=== PATIENT | female | born 1940 | race Caucasian/White ===

== ENCOUNTER 2016-03-29 09:27 | Outpatient (CLI) | payer MEDICARE, BC ==
[~2016-03-29] VITALS: Ht 162.6 cm; Wt 75.0 kg
[~2016-03-29 09:27] MED LIST: AMBIEN 10MG10 MG PO; ASPIRIN E.C. 8181 MG PO; AZULFIDINE500 MG/TAB PO; CITRACAL + D 311 TAB PO; COLACE 100100 MG/CAP PO; EPA FISH OIL1000 MG PO; FOLIC ACID0.8 MG PO; LASIX 20MG TABL20 MG PO; LEXAPRO 5MG5 MG PO; LIPITOR 40MG TA40 MG PO; METHOTREXA2.5 MG/TAB PO; MIRALAX PA17 GM/Dose PO; MULTIPLE VITAMI1 TAB PO; NORCO 325 MG-51 TAB PO; ORENCIA IV; ORENCIA250 MG IV; OSCAL 500MG/VI500 MG PO; OSTEO-BI-FLEX 21 TAB PO; PRILOSEC 20MG20 MG PO; PRILOTC PO; PROBIOTIC FORMU1 CAP PO; RELAFEN750 MG PO; RESTASIS0.05% OP; SENOKOT S 50 MG1 TAB PO; TYLENOL ARTHRI650 M1 PO; VITAMIN B122500 MCG PO; VITAMIN D1000 IU PO; ZOCOR 10MG10 MG PO; ZYRTEC 10MG10 MG PO
[2016-03-29 10:04] VITALS: BP 141/63; PULSE 62; TEMP 98.8
== END 2016-03-29 11:15 | disposition home or self-care (01) ==
LOC: EUO 09:27
DX: M06.89 Other specified rheumatoid arthritis, multiple sites (principal)
CPT/HCPCS: J0129

== ENCOUNTER 2016-05-01 13:08 | Outpatient (CLI) | payer MEDICARE, BC ==
[~2016-05-01] VITALS: Ht 162.6 cm; Wt 75.0 kg
[2016-05-01 14:20] VITALS: BP 1221/66; PULSE 75; TEMP 98.5
== END 2016-05-01 15:21 | disposition home or self-care (01) ==
LOC: EUO 13:08
DX: M06.89 Other specified rheumatoid arthritis, multiple sites (principal)
CPT/HCPCS: J0129

== ENCOUNTER 2016-05-29 13:27 | Outpatient (CLI) | payer MEDICARE, BC ==
[~2016-05-29] VITALS: Ht 162.6 cm; Wt 74.5 kg
[2016-05-29 13:47] VITALS: BP 134/45; PULSE 69; TEMP 97.7
== END 2016-05-29 16:49 | disposition home or self-care (01) ==
LOC: EUO 13:27
DX: M06.9 Rheumatoid arthritis, unspecified (principal)
CPT/HCPCS: J0129

== ENCOUNTER 2016-06-26 13:36 | Outpatient (CLI) | payer MEDICARE, BC ==
[~2016-06-26] VITALS: Ht 162.6 cm; Wt 75.0 kg
[2016-06-26 14:47] VITALS: BP 144/58; PULSE 71; TEMP 98.6
== END 2016-06-26 15:51 | disposition home or self-care (01) ==
LOC: EUO 13:36
DX: M06.9 Rheumatoid arthritis, unspecified (principal)
CPT/HCPCS: J0129

== ENCOUNTER 2016-07-24 09:44 | Outpatient (CLI) | payer MEDICARE, BC ==
[~2016-07-24] VITALS: Ht 162.6 cm; Wt 73.0 kg
[2016-07-24 10:20] VITALS: BP 141/67; PULSE 60; TEMP 98.1
== END 2016-07-24 11:34 | disposition home or self-care (01) ==
LOC: EUO 09:44
DX: M06.89 Other specified rheumatoid arthritis, multiple sites (principal)
CPT/HCPCS: J0129

== ENCOUNTER 2016-08-22 10:51 | Outpatient (CLI) | payer MEDICARE, BC ==
[~2016-08-22] VITALS: Ht 162.6 cm; Wt 73.1 kg
[2016-08-22 11:33] VITALS: BP 137/59; PULSE 65; TEMP 98.3
== END 2016-08-22 12:49 | disposition home or self-care (01) ==
LOC: EUO 10:51
DX: M06.89 Other specified rheumatoid arthritis, multiple sites (principal)
CPT/HCPCS: J0129

== ENCOUNTER 2016-09-19 09:34 | Outpatient (CLI) | payer MEDICARE, BC ==
[2016-09-19 11:00] VITALS: BP 138/68; PULSE 50; TEMP 97.9
== END 2016-09-19 13:00 ==
LOC: EUO 09:34
DX: M06.89 Other specified rheumatoid arthritis, multiple sites (principal); Z79.899 Other long term (current) drug therapy
CPT/HCPCS: J0129

== ENCOUNTER 2016-10-17 09:30 | Outpatient (CLI) | payer MEDICARE, BC ==
[~2016-10-17] VITALS: Ht 162.6 cm; Wt 74.6 kg
[2016-10-17 11:04] VITALS: BP 125/54; PULSE 65; TEMP 98.5
== END 2016-10-17 12:28 | disposition home or self-care (01) ==
LOC: EUO 09:30
DX: M06.9 Rheumatoid arthritis, unspecified (principal); Z79.899 Other long term (current) drug therapy
CPT/HCPCS: J0129

== ENCOUNTER 2016-12-31 12:25 | Outpatient (CLI) | payer MEDICARE, BC ==
[~2016-12-31] VITALS: Ht 162.6 cm; Wt 73.2 kg
[2016-12-31 13:30] VITALS: BP 151/68; PULSE 63; TEMP 98
== END 2016-12-31 15:05 | disposition home or self-care (01) ==
LOC: EUO 12:25
DX: M06.9 Rheumatoid arthritis, unspecified (principal); Z79.899 Other long term (current) drug therapy
CPT/HCPCS: J0129

== ENCOUNTER 2017-02-08 12:31 | Outpatient (CLI) | payer MEDICARE, BC ==
[~2017-02-08] VITALS: Ht 162.6 cm; Wt 74.2 kg
[2017-02-08 13:33] VITALS: BP 128/50; PULSE 73; TEMP 98.2
== END 2017-02-08 15:00 | disposition home or self-care (01) ==
LOC: EUO 12:47
DX: M06.89 Other specified rheumatoid arthritis, multiple sites (principal)
CPT/HCPCS: J0129

== ENCOUNTER 2017-03-07 12:22 | Outpatient (CLI) | payer MEDICARE, BC ==
[~2017-03-07] VITALS: Ht 162.6 cm; Wt 85.0 kg
[2017-03-07 13:00] VITALS: BP 135/59; PULSE 76; TEMP 97.6
== END 2017-03-07 14:50 | disposition home or self-care (01) ==
LOC: EUO 12:22
DX: M06.89 Other specified rheumatoid arthritis, multiple sites (principal); Z79.899 Other long term (current) drug therapy
CPT/HCPCS: J0129

== ENCOUNTER 2017-04-04 13:07 | Outpatient (CLI) | payer MEDICARE, BC ==
[~2017-04-04] VITALS: Ht 162.6 cm; Wt 73.6 kg
[2017-04-04 13:51] VITALS: BP 124/46; PULSE 80; TEMP 98
== END 2017-04-04 16:00 | disposition home or self-care (01) ==
LOC: EUO 13:07
DX: M06.89 Other specified rheumatoid arthritis, multiple sites (principal); Z79.899 Other long term (current) drug therapy
CPT/HCPCS: J0129

== ENCOUNTER 2017-05-02 13:29 | Outpatient (CLI) | payer MEDICARE, BC ==
[~2017-05-02] VITALS: Ht 162.6 cm; Wt 72.6 kg
[2017-05-02 13:45] VITALS: BP 147/66; PULSE 68; TEMP 98.1
== END 2017-05-02 16:00 | disposition home or self-care (01) ==
LOC: EUO 13:29
DX: M06.89 Other specified rheumatoid arthritis, multiple sites (principal); Z79.899 Other long term (current) drug therapy
CPT/HCPCS: J0129

== ENCOUNTER 2017-06-14 14:30 | Outpatient (RCR) | payer MEDICARE, BC ==
[~2017-06-14] VITALS: Ht 162.6 cm; Wt 74.0 kg
[2017-06-14 14:50] VITALS: BP 136/58; PULSE 67; TEMP 98.1
== END 2017-06-14 16:30 | disposition home or self-care (01) ==
LOC: EUO 14:30
DX: M06.89 Other specified rheumatoid arthritis, multiple sites (principal); Z79.899 Other long term (current) drug therapy
CPT/HCPCS: J0129

== ENCOUNTER 2017-07-18 13:15 | Outpatient (CLI) | payer MEDICARE, BC ==
[2017-07-18 13:41] VITALS: BP 126/62; PULSE 77; TEMP 98.5
== END 2017-07-18 16:00 | disposition home or self-care (01) ==
LOC: EUO 13:15
DX: M06.89 Other specified rheumatoid arthritis, multiple sites (principal); Z79.899 Other long term (current) drug therapy
CPT/HCPCS: J0129

== ENCOUNTER 2017-08-15 12:29 | Outpatient (CLI) | payer MEDICARE, BC ==
[2017-08-15 12:44] VITALS: BP 109/62; PULSE 76; TEMP 98.7
== END 2017-08-15 14:46 | disposition home or self-care (01) ==
LOC: EUO 12:29
DX: M06.89 Other specified rheumatoid arthritis, multiple sites (principal); Z79.899 Other long term (current) drug therapy
CPT/HCPCS: J0129

== ENCOUNTER 2017-09-20 12:31 | Outpatient (CLI) | payer MEDICARE, BC ==
[~2017-09-20] VITALS: Ht 162.6 cm; Wt 74.8 kg
[2017-09-20 13:00] VITALS: BP 137/58; PULSE 79; TEMP 98.7
[2017-09-20] MEDS ORDERED: TEMOVATE0.05% TP (13:01)
== END 2017-09-20 14:15 | disposition home or self-care (01) ==
LOC: EUO 12:31
DX: M06.9 Rheumatoid arthritis, unspecified (principal)
CPT/HCPCS: J0129

== ENCOUNTER 2017-10-18 12:20 | Outpatient (CLI) | payer MEDICARE, BC ==
[~2017-10-18] VITALS: Ht 162.6 cm; Wt 71.0 kg
[~2017-10-18 12:20] MED LIST changes: +TEMOVATE0.05% TP
[2017-10-18] MEDS ORDERED: FOSAMAX 70MG TA70 MG PO (12:41)
[2017-10-18 12:43] VITALS: BP 130/61; PULSE 63; TEMP 98.2
== END 2017-10-18 15:00 | disposition home or self-care (01) ==
LOC: EUO 12:20
DX: M06.89 Other specified rheumatoid arthritis, multiple sites (principal); Z79.899 Other long term (current) drug therapy
CPT/HCPCS: J0129

== ENCOUNTER 2017-11-15 12:38 | Outpatient (CLI) | payer MEDICARE, BC ==
[~2017-11-15] VITALS: Ht 162.6 cm; Wt 75.4 kg
[~2017-11-15 12:38] MED LIST changes: +FOSAMAX 70MG TA70 MG PO
[2017-11-15 14:02] VITALS: BP 115/54; PULSE 78; TEMP 98.3
== END 2017-11-15 15:00 | disposition home or self-care (01) ==
LOC: EUO 12:38
DX: M06.89 Other specified rheumatoid arthritis, multiple sites (principal); Z79.899 Other long term (current) drug therapy
CPT/HCPCS: J0129

== ENCOUNTER 2017-12-13 12:56 | Outpatient (CLI) | payer MEDICARE, BC ==
[~2017-12-13] VITALS: Ht 162.6 cm; Wt 76.0 kg
[~2017-12-13 12:56] MED LIST changes: -CITRACAL + D 311 TAB PO; +CITRACAL + D CA1 TAB PO; +MULTIPLE VITAMI1 CAP PO; -MULTIPLE VITAMI1 TAB PO; +TYLENOL 8 HR PO; -TYLENOL ARTHRI650 M1 PO; -VITAMIN D1000 IU PO; +VITAMIN D31000 I1 PO
[2017-12-13 13:20] VITALS: BP 141/62; PULSE 73; TEMP 99.1
[2017-12-13] MEDS ORDERED: REFRESH OPTIVE10 M2 OU (15:14)
== END 2017-12-13 15:43 | disposition home or self-care (01) ==
LOC: EUO 12:56
DX: M06.89 Other specified rheumatoid arthritis, multiple sites (principal); Z79.899 Other long term (current) drug therapy
CPT/HCPCS: J0129

== ENCOUNTER 2018-01-10 12:46 | Outpatient (CLI) | payer MEDICARE, BC ==
[~2018-01-10] VITALS: Ht 162.6 cm; Wt 75.9 kg
[~2018-01-10 12:46] MED LIST changes: +REFRESH OPTIVE10 M2 OU
[2018-01-10 15:51] VITALS: BP 149/70; PULSE 71; TEMP 97.1
== END 2018-01-10 14:46 | disposition home or self-care (01) ==
LOC: EUO 12:46
DX: M06.89 Other specified rheumatoid arthritis, multiple sites (principal); Z98.890 Other specified postprocedural states
CPT/HCPCS: J0129

== ENCOUNTER 2018-02-07 12:20 | Outpatient (CLI) | payer MEDICARE, BC ==
[2018-02-07 12:40] VITALS: BP 157/69; PULSE 61; TEMP 98.1
== END 2018-02-07 14:37 | disposition home or self-care (01) ==
LOC: EUO 12:20
DX: M06.89 Other specified rheumatoid arthritis, multiple sites (principal); Z79.899 Other long term (current) drug therapy
CPT/HCPCS: J0129

== ENCOUNTER 2018-03-07 13:21 | Outpatient (CLI) | payer MEDICARE, BC ==
[~2018-03-07] VITALS: Ht 162.6 cm; Wt 76.0 kg
[2018-03-07 14:10] VITALS: BP 137/59; PULSE 70; TEMP 98.7
== END 2018-03-07 15:37 | disposition home or self-care (01) ==
LOC: EUO 13:21
DX: M06.89 Other specified rheumatoid arthritis, multiple sites (principal); Z79.899 Other long term (current) drug therapy
CPT/HCPCS: J0129

== ENCOUNTER 2018-04-10 14:38 | Outpatient (CLI) | payer MEDICARE, BC ==
[2018-04-10 15:45] VITALS: BP 121/57; PULSE 79; TEMP 98.5
== END 2018-04-10 18:00 | disposition home or self-care (01) ==
LOC: EUO 14:38
DX: M06.89 Other specified rheumatoid arthritis, multiple sites (principal); Z79.899 Other long term (current) drug therapy
CPT/HCPCS: J0129

== ENCOUNTER 2018-05-08 09:48 | Outpatient (CLI) | payer MEDICARE, BC ==
[~2018-05-08] VITALS: Ht 162.6 cm; Wt 75.6 kg
[2018-05-08 10:16] VITALS: BP 130/58; PULSE 71; TEMP 97.5
== END 2018-05-08 16:05 | disposition home or self-care (01) ==
LOC: EUO 09:48
DX: M06.89 Other specified rheumatoid arthritis, multiple sites (principal); Z79.899 Other long term (current) drug therapy
CPT/HCPCS: J0129

== ENCOUNTER 2018-06-05 12:29 | Outpatient (CLI) | payer MEDICARE, BC ==
[~2018-06-05] VITALS: Ht 162.6 cm; Wt 75.0 kg
[2018-06-05 13:01] VITALS: BP 113/65; PULSE 76; TEMP 98.3
== END 2018-06-05 14:19 | disposition home or self-care (01) ==
LOC: EUO 12:29
DX: M06.89 Other specified rheumatoid arthritis, multiple sites (principal); Z79.899 Other long term (current) drug therapy
CPT/HCPCS: J0129

== ENCOUNTER 2018-07-03 12:32 | Outpatient (CLI) | payer MEDICARE, BC ==
[2018-07-03 14:05] VITALS: BP 128/68; PULSE 77; TEMP 97.8
== END 2018-07-03 15:13 | disposition home or self-care (01) ==
LOC: EUO 12:32
DX: M06.89 Other specified rheumatoid arthritis, multiple sites (principal); Z79.899 Other long term (current) drug therapy
CPT/HCPCS: J0129

== ENCOUNTER 2018-07-24 12:40 | Outpatient (RCR) | payer MEDICARE, BC ==
[~2018-07-24] VITALS: Ht 162.6 cm; Wt 76.0 kg
[2018-07-24 13:59] VITALS: BP 128/40; PULSE 60; TEMP 98.2
== END 2018-07-24 15:27 | disposition home or self-care (01) ==
LOC: EUO 12:40 → EDSTATUS 13:00 → EUO 13:00
DX: M06.89 Other specified rheumatoid arthritis, multiple sites (principal); Z79.899 Other long term (current) drug therapy
CPT/HCPCS: J0129

== ENCOUNTER 2018-08-21 12:32 | Outpatient (CLI) | payer MEDICARE, BC ==
[~2018-08-21] VITALS: Ht 162.6 cm; Wt 75.0 kg
[2018-08-21] MEDS ORDERED: SINGULAIR 110 MG/TAB PO (12:48)
[2018-08-21 12:50] VITALS: BP 141/53; PULSE 69; TEMP 98.2
== END 2018-08-21 16:30 | disposition home or self-care (01) ==
LOC: EUO 12:32
DX: M06.89 Other specified rheumatoid arthritis, multiple sites (principal); Z79.899 Other long term (current) drug therapy
CPT/HCPCS: J0129

== ENCOUNTER 2018-09-19 10:04 | Outpatient (CLI) | payer MEDICARE, BC ==
[~2018-09-19] VITALS: Ht 162.6 cm; Wt 76.0 kg
[~2018-09-19 10:04] MED LIST changes: +SINGULAIR 110 MG/TAB PO
[2018-09-19 10:21] VITALS: BP 149/61; PULSE 72; TEMP 98
[2018-09-19] MEDS ORDERED: FIBER GUMMIES2.5 GM PO (10:21)
== END 2018-09-19 12:05 | disposition home or self-care (01) ==
LOC: EUO 10:04
DX: M06.9 Rheumatoid arthritis, unspecified (principal); Z79.899 Other long term (current) drug therapy
CPT/HCPCS: J0129

== ENCOUNTER 2018-11-13 12:14 | Outpatient (CLI) | payer MEDICARE, BC ==
[~2018-11-13] VITALS: Ht 162.6 cm; Wt 73.0 kg
[~2018-11-13 12:14] MED LIST changes: +FIBER GUMMIES2.5 GM PO
[2018-11-13 13:04] VITALS: BP 111/58; PULSE 65; TEMP 98.4
== END 2018-11-13 14:57 | disposition home or self-care (01) ==
LOC: EUO 12:14
DX: M05.79 Rheumatoid arthritis with rheumatoid factor of multiple sites without organ or systems involvement (principal)
CPT/HCPCS: J0129

== ENCOUNTER 2018-12-11 13:02 | Outpatient (CLI) | payer MEDICARE, BC ==
[~2018-12-11] VITALS: Ht 162.6 cm; Wt 72.4 kg
[2018-12-11 14:34] VITALS: BP 141/58; PULSE 70; TEMP 98.3
== END 2018-12-11 16:27 | disposition home or self-care (01) ==
LOC: EUO 13:02
DX: M05.79 Rheumatoid arthritis with rheumatoid factor of multiple sites without organ or systems involvement (principal); Z79.899 Other long term (current) drug therapy
CPT/HCPCS: J0129

== ENCOUNTER 2019-01-08 13:22 | Outpatient (CLI) | payer MEDICARE, BC ==
[~2019-01-08] VITALS: Ht 162.6 cm; Wt 72.4 kg
[2019-01-08 14:51] VITALS: BP 143/62; PULSE 69; TEMP 98.3
[2019-01-08 16:00] VITALS: BP 136/57; PULSE 61
== END 2019-01-08 16:30 | disposition home or self-care (01) ==
LOC: EUO 13:22
DX: M05.79 Rheumatoid arthritis with rheumatoid factor of multiple sites without organ or systems involvement (principal); Z79.899 Other long term (current) drug therapy
CPT/HCPCS: J0129

== ENCOUNTER → 2019-01-19 | Outpatient (CLI) | payer MEDICARE, BC | LOC: COL.RAD 07:26 | DX: Z86.010 Personal history of colon polyps (principal) ==

== ENCOUNTER 2019-02-05 13:14 | Outpatient (CLI) | payer MEDICARE, BC ==
[~2019-02-05] VITALS: Ht 162.6 cm; Wt 72.6 kg
[2019-02-05 14:37] VITALS: BP 142/64; PULSE 79; TEMP 97.4
== END 2019-02-05 15:40 | disposition home or self-care (01) ==
LOC: EUO 13:14
DX: M05.79 Rheumatoid arthritis with rheumatoid factor of multiple sites without organ or systems involvement (principal); Z79.899 Other long term (current) drug therapy
CPT/HCPCS: J0129

== ENCOUNTER 2019-03-05 14:18 | Outpatient (CLI) | payer MEDICARE, BC ==
[~2019-03-05] VITALS: Ht 162.6 cm; Wt 75.0 kg
[2019-03-05] MEDS ORDERED: MELATIN 3 MG-11 TAB PO (15:33)
[2019-03-05 15:45] VITALS: BP 148/80; PULSE 64; TEMP 98.3
[2019-03-05 16:30] VITALS: BP 159/67; PULSE 68; TEMP 98.8
--- NOTE | 2019-03-05 16:35 | NUR ---
Pt pham Orencia well. Pt discharged per ambulation.
== END 2019-03-05 16:44 | disposition home or self-care (01) ==
LOC: EUO 14:18
DX: M05.79 Rheumatoid arthritis with rheumatoid factor of multiple sites without organ or systems involvement (principal); Z79.899 Other long term (current) drug therapy
CPT/HCPCS: J0129

== ENCOUNTER 2019-06-04 13:30 | Outpatient (RCR) | payer MEDICARE, BC ==
[~2019-06-04] VITALS: Ht 162.6 cm; Wt 73.1 kg
[~2019-06-04 13:30] MED LIST changes: +MELATIN 3 MG-11 TAB PO
[2019-06-04 14:23] VITALS: BP 146/79; PULSE 75; TEMP 98.2
== END 2019-06-04 19:26 | disposition home or self-care (01) ==
LOC: EDSTATUS 13:30 → EUO 13:30
DX: M05.79 Rheumatoid arthritis with rheumatoid factor of multiple sites without organ or systems involvement (principal); Z79.899 Other long term (current) drug therapy
CPT/HCPCS: J0129

== ENCOUNTER 2019-07-02 11:14 | Outpatient (CLI) | payer MEDICARE, BC ==
[~2019-07-02] VITALS: Ht 162.6 cm; Wt 74.2 kg
[2019-07-02 12:00] VITALS: BP 135/72; BP 152/84; PULSE 69; TEMP 98.9
== END 2019-07-02 13:30 | disposition home or self-care (01) ==
LOC: EUO 11:14
DX: M05.79 Rheumatoid arthritis with rheumatoid factor of multiple sites without organ or systems involvement (principal); Z79.899 Other long term (current) drug therapy
CPT/HCPCS: J0129

== ENCOUNTER 2019-07-30 13:25 | Outpatient (CLI) | payer MEDICARE, BC ==
[~2019-07-30] VITALS: Ht 162.6 cm; Wt 74.4 kg
[2019-07-30 13:41] VITALS: BP 141/48; PULSE 69; TEMP 98.9
== END 2019-07-30 15:48 | disposition home or self-care (01) ==
LOC: EUO 13:25
DX: M05.79 Rheumatoid arthritis with rheumatoid factor of multiple sites without organ or systems involvement (principal); Z79.899 Other long term (current) drug therapy
CPT/HCPCS: J0129

== ENCOUNTER 2019-09-30 09:48 | Outpatient (CLI) | payer MEDICARE, BC ==
[~2019-09-30] VITALS: Ht 162.6 cm; Wt 72.7 kg
[2019-09-30 11:18] VITALS: BP 148/78; PULSE 57; TEMP 98.3
== END 2019-09-30 12:19 | disposition home or self-care (01) ==
LOC: EUO 09:48
DX: M05.79 Rheumatoid arthritis with rheumatoid factor of multiple sites without organ or systems involvement (principal); Z79.899 Other long term (current) drug therapy
CPT/HCPCS: J0129

== ENCOUNTER 2019-10-28 09:47 | Outpatient (CLI) | payer MEDICARE, BC ==
[~2019-10-28] VITALS: Ht 162.6 cm; Wt 73.3 kg
[2019-10-28 11:46] VITALS: BP 146/83; PULSE 62; TEMP 98.7
== END 2019-10-28 11:47 | disposition home or self-care (01) ==
LOC: EUO 09:47
DX: C34.12 Malignant neoplasm of upper lobe, left bronchus or lung (principal)
CPT/HCPCS: J0129

== ENCOUNTER 2019-11-25 09:59 | Outpatient (CLI) | payer MEDICARE, BC ==
[~2019-11-25] VITALS: Ht 162.6 cm; Wt 82.5 kg
[2019-11-25 10:46] VITALS: BP 143/79; PULSE 58; TEMP 98.4
--- NOTE | 2019-11-25 12:00 | NUR ---
iv infused, no c/o, d'cd intact
== END 2019-11-25 12:00 | disposition home or self-care (01) ==
LOC: EUO 09:59
DX: M05.79 Rheumatoid arthritis with rheumatoid factor of multiple sites without organ or systems involvement (principal); Z79.899 Other long term (current) drug therapy
CPT/HCPCS: J0129

== ENCOUNTER 2019-12-23 13:07 | Outpatient (CLI) | payer MEDICARE, BC ==
[~2019-12-23] VITALS: Ht 162.6 cm; Wt 74.1 kg
[2019-12-23 14:48] VITALS: BP 153/49; PULSE 58; TEMP 98.6
== END 2019-12-23 15:00 | disposition home or self-care (01) ==
LOC: EUO 13:07
DX: M05.79 Rheumatoid arthritis with rheumatoid factor of multiple sites without organ or systems involvement (principal)
CPT/HCPCS: J0129

== ENCOUNTER 2020-01-28 13:18 | Outpatient (CLI) | payer MEDICARE, BC ==
[~2020-01-28] VITALS: Ht 162.6 cm; Wt 72.9 kg
[2020-01-28 14:24] VITALS: BP 108/53; PULSE 81; TEMP 98.8
== END 2020-01-28 16:22 | disposition home or self-care (01) ==
LOC: EUO 13:18
DX: M05.79 Rheumatoid arthritis with rheumatoid factor of multiple sites without organ or systems involvement (principal); Z79.899 Other long term (current) drug therapy
CPT/HCPCS: J0129

== ENCOUNTER 2020-02-25 13:30 | Outpatient (CLI) | payer MEDICARE, BC ==
[~2020-02-25] VITALS: Ht 162.6 cm; Wt 74.2 kg
[2020-02-25 13:45] VITALS: BP 131/62; PULSE 55; TEMP 97.5
== END 2020-02-25 15:30 | disposition home or self-care (01) ==
LOC: EUO 13:30
DX: M06.9 Rheumatoid arthritis, unspecified (principal)
CPT/HCPCS: J0129

== ENCOUNTER 2020-03-24 13:18 | Outpatient (CLI) | payer MEDICARE, BC ==
[2020-03-24 14:43] VITALS: BP 144/88; PULSE 61
== END 2020-03-24 15:33 | disposition home or self-care (01) ==
LOC: EUO 13:18
DX: M05.79 Rheumatoid arthritis with rheumatoid factor of multiple sites without organ or systems involvement (principal); Z79.899 Other long term (current) drug therapy
CPT/HCPCS: J0129

== ENCOUNTER 2020-05-27 12:59 | Outpatient (CLI) | payer MEDICARE, BC ==
[~2020-05-27] VITALS: Ht 162.6 cm; Wt 75.1 kg
[2020-05-27 13:20] VITALS: BP 134/79; PULSE 63; TEMP 97.5
== END 2020-05-27 17:41 | disposition home or self-care (01) ==
LOC: EUO 12:59
DX: M05.79 Rheumatoid arthritis with rheumatoid factor of multiple sites without organ or systems involvement (principal); Z79.899 Other long term (current) drug therapy
CPT/HCPCS: J0129

== ENCOUNTER 2020-06-24 12:40 | Outpatient (CLI) | payer MEDICARE, BC ==
[~2020-06-24] VITALS: Ht 162.6 cm; Wt 74.4 kg
[2020-06-24 13:57] VITALS: BP 127/72; PULSE 65; TEMP 98.4
[2020-06-24 14:53] VITALS: BP 125/68; PULSE 62; TEMP 98.4
== END 2020-06-24 14:53 | disposition home or self-care (01) ==
LOC: EUO 12:40
DX: M05.79 Rheumatoid arthritis with rheumatoid factor of multiple sites without organ or systems involvement (principal); Z79.899 Other long term (current) drug therapy
CPT/HCPCS: J0129

== ENCOUNTER 2020-07-22 12:27 | Outpatient (CLI) | payer MEDICARE, BC ==
[~2020-07-22] VITALS: Ht 162.6 cm; Wt 75.8 kg
[2020-07-22 13:33] VITALS: BP 125/74; PULSE 59; TEMP 98.6
== END 2020-07-22 14:38 | disposition home or self-care (01) ==
LOC: EUO 12:27
DX: M05.79 Rheumatoid arthritis with rheumatoid factor of multiple sites without organ or systems involvement (principal); Z79.899 Other long term (current) drug therapy
CPT/HCPCS: J0129

== ENCOUNTER 2020-08-19 13:23 | Outpatient (CLI) | payer MEDICARE, BC ==
[~2020-08-19] VITALS: Ht 162.6 cm; Wt 75.7 kg
[2020-08-19 14:18] VITALS: BP 138/69; PULSE 81; TEMP 99
== END 2020-08-19 17:00 | disposition home or self-care (01) ==
LOC: EUO 13:23
DX: M05.79 Rheumatoid arthritis with rheumatoid factor of multiple sites without organ or systems involvement (principal); Z79.899 Other long term (current) drug therapy
CPT/HCPCS: J0129

== ENCOUNTER 2020-10-07 13:40 | Outpatient (CLI) | payer MEDICARE, BC ==
[2020-10-07 14:50] VITALS: BP 112/62; PULSE 55; TEMP 98.5
== END 2020-10-07 16:00 | disposition home or self-care (01) ==
LOC: EUO 13:40
DX: M05.79 Rheumatoid arthritis with rheumatoid factor of multiple sites without organ or systems involvement (principal)
CPT/HCPCS: J0129

== ENCOUNTER 2020-11-11 13:57 | Outpatient (CLI) | payer MEDICARE, BC ==
[~2020-11-11] VITALS: Ht 162.6 cm; Wt 97.4 kg
[2020-11-11 15:30] VITALS: BP 125/56; PULSE 56; TEMP 98.5
== END 2020-11-11 17:00 | disposition home or self-care (01) ==
LOC: EUO 13:57
DX: M05.79 Rheumatoid arthritis with rheumatoid factor of multiple sites without organ or systems involvement (principal); Z79.899 Other long term (current) drug therapy
CPT/HCPCS: J0129

== ENCOUNTER 2020-12-09 13:44 | Outpatient (CLI) | payer MEDICARE, BC ==
[~2020-12-09] VITALS: Ht 162.6 cm; Wt 75.4 kg
[2020-12-09 14:52] VITALS: BP 127/55; PULSE 58; TEMP 97.5
== END 2020-12-09 15:30 | disposition home or self-care (01) ==
LOC: EUO 13:44
DX: M05.79 Rheumatoid arthritis with rheumatoid factor of multiple sites without organ or systems involvement (principal); Z79.899 Other long term (current) drug therapy
CPT/HCPCS: J0129

== ENCOUNTER 2021-01-06 13:44 | Outpatient (CLI) | payer MEDICARE, BC ==
[~2021-01-06] VITALS: Ht 162.6 cm; Wt 74.0 kg
[2021-01-06 14:00] VITALS: BP 120/67; TEMP 98
--- NOTE | 2021-01-06 15:35 | NUR ---
INFUSION COMPLETED, IV D'CD INTACT, NEXT APPT MADE, PT DISCHARGED AMB.
== END 2021-01-06 15:35 | disposition home or self-care (01) ==
LOC: EUO 13:44
DX: M05.79 Rheumatoid arthritis with rheumatoid factor of multiple sites without organ or systems involvement (principal)
CPT/HCPCS: J0129

== ENCOUNTER 2021-02-03 13:46 | Outpatient (CLI) | payer MEDICARE, BC ==
[~2021-02-03] VITALS: Ht 162.6 cm; Wt 75.0 kg
[2021-02-03 15:08] VITALS: BP 127/68; PULSE 67; TEMP 98.4
== END 2021-02-03 16:22 ==
LOC: EUO 13:46
DX: M05.79 Rheumatoid arthritis with rheumatoid factor of multiple sites without organ or systems involvement (principal); Z79.899 Other long term (current) drug therapy
CPT/HCPCS: J0129

== ENCOUNTER 2021-03-07 12:29 | Outpatient (CLI) | payer MEDICARE, BC ==
[~2021-03-07] VITALS: Ht 162.6 cm; Wt 72.7 kg
[2021-03-07 13:21] LABS: BASO % 0.4 % (0.0-2.0); EOS # 0.1 K/mm3 (0.0-0.7); EOS % 1.4 % (0.0-4.0); GRAN # 3.9 K/mm3 (1.4-6.5); GRAN % 50.6 % (42.2-75.2); LYMPH % 39.2 % (20.0-51.0); MEAN CELL VOLUME 89 fl (80.0-100.0); MEAN CORPUSCULAR HEMOGLOBIN 29 pg (27-31); MEAN CORPUSCULAR HGB CONC 33 g/dl (33.0-37.0); MEAN PLATELET VOLUME 10.9 fl (7.4-10.4); MONO # 0.6 K/mm3 (0.1-0.6); MONO % 8.3 % (1.7-9.3); PLATELET COUNT 168 K/mm3 (130-400); RED BLOOD COUNT 4.08 M/mm3 (4.10-5.30); REDCELL DISTRIBUTION WIDTH-CV 15.9 % (11.5-14.5)
[2021-03-07 13:27] VITALS: BP 157/70; PULSE 61; TEMP 98.2
[2021-03-07 13:30] LABS: HEMATOCRIT 36.3 % (37.0-47.0)
[2021-03-07 13:48] LABS: ALBUMIN 3.8 gm/dL (3.4-4.8); BILIRUBIN,TOTAL 0.7 mg/dL (0.2-1.2); CALCIUM 9.1 mg/dL (8.4-10.2); CREATININE, serum 0.81 mg/dL (0.57-1.11); POTASSIUM 3.9 mmol/L (3.5-4.5); TOTAL PROTEIN 6.7 gm/dL (6.2-8.1)
== END 2021-03-07 14:45 | disposition home or self-care (01) ==
LOC: EUO 12:29
PROVIDERS: Internal Medicine
DX: M05.79 Rheumatoid arthritis with rheumatoid factor of multiple sites without organ or systems involvement (principal); Z79.899 Other long term (current) drug therapy
CPT/HCPCS: J0129

== ENCOUNTER 2021-04-04 12:35 | Outpatient (CLI) | payer MEDICARE, BC ==
[~2021-04-04] VITALS: Ht 162.6 cm; Wt 74.7 kg
[2021-04-04] MEDS ORDERED: BENADRYL25 M2 PO (14:14)
[2021-04-04 15:29] VITALS: BP 148/83; PULSE 52; TEMP 98.3
== END 2021-04-04 15:30 | disposition home or self-care (01) ==
LOC: EUO 12:35
DX: M05.79 Rheumatoid arthritis with rheumatoid factor of multiple sites without organ or systems involvement (principal)
CPT/HCPCS: J0129

== ENCOUNTER 2021-05-09 12:35 | Outpatient (CLI) | payer MEDICARE, BC ==
[~2021-05-09] VITALS: Ht 162.6 cm; Wt 74.9 kg
[~2021-05-09 12:35] MED LIST changes: +BENADRYL25 M2 PO
[2021-05-09 14:18] VITALS: BP 147/63; PULSE 57; TEMP 98.2
== END 2021-05-09 15:10 | disposition home or self-care (01) ==
LOC: EUO 12:35
DX: Z51.81 Encounter for therapeutic drug level monitoring (principal); M05.9 Rheumatoid arthritis with rheumatoid factor, unspecified; Z79.899 Other long term (current) drug therapy; E78.00 Pure hypercholesterolemia, unspecified
CPT/HCPCS: J0129

== ENCOUNTER → 2021-05-15 | Outpatient (CLI) | payer MEDICARE, BC ==
[2021-05-16 17:30] LABS: TB GOLD INTERPRETATION Negative (Negative)
== END ==
LOC: COL.LAB 10:24
PROVIDERS: Internal Medicine Rheumatology
DX: Z51.81 Encounter for therapeutic drug level monitoring (principal); M06.9 Rheumatoid arthritis, unspecified; Z79.899 Other long term (current) drug therapy; E78.00 Pure hypercholesterolemia, unspecified

== ENCOUNTER → 2021-06-06 | Outpatient (CLI) | payer MEDICARE, BC ==
[2021-06-06 13:14] LABS: BASO % 0.4 % (0.0-2.0); EOS # 0.2 K/mm3 (0.0-0.7); EOS % 1.8 % (0.0-4.0); GRAN # 5.2 K/mm3 (1.4-6.5); GRAN % 57.4 % (42.2-75.2); HEMATOCRIT 41.1 % (37.0-47.0); HEMOGLOBIN 13.4 g/dl (12.5-16.0); LYMPH # 2.9 K/mm3 (1.2-3.4); LYMPH % 31.6 % (20.0-51.0); MEAN CELL VOLUME 88 fl (80.0-100.0); MEAN CORPUSCULAR HEMOGLOBIN 29 pg (27-31); MEAN CORPUSCULAR HGB CONC 33 g/dl (33.0-37.0); MEAN PLATELET VOLUME 10.9 fl (7.4-10.4); MONO # 0.8 K/mm3 (0.1-0.6); MONO % 8.5 % (1.7-9.3); PLATELET COUNT 201 K/mm3 (130-400); RED BLOOD COUNT 4.69 M/mm3 (4.10-5.30); REDCELL DISTRIBUTION WIDTH-CV 16.1 % (11.5-14.5)
[2021-06-06 13:28] VITALS: BP 132/62; PULSE 65; TEMP 97.9
[2021-06-06 13:31] LABS: BILIRUBIN,TOTAL 0.7 mg/dL (0.2-1.2); CALCIUM 9.3 mg/dL (8.4-10.2); CREATININE, serum 0.82 mg/dL (0.57-1.11); POTASSIUM 3.7 mmol/L (3.5-4.5); TOTAL PROTEIN 7.8 gm/dL (6.2-8.1)
== END ==
LOC: EUO 12:41
PROVIDERS: Internal Medicine
DX: M05.79 Rheumatoid arthritis with rheumatoid factor of multiple sites without organ or systems involvement (principal)
CPT/HCPCS: J0129

== ENCOUNTER 2021-07-18 12:39 | Outpatient (CLI) | payer MEDICARE, BC ==
[~2021-07-18] VITALS: Ht 162.6 cm; Wt 75.6 kg
[~2021-07-18 12:39] MED LIST changes: -MULTIPLE VITAMI1 CAP PO; +MULTIPLE VITAMI1 TA5 PO
[2021-07-18 13:07] VITALS: BP 146/76; PULSE 56; TEMP 98.7
== END 2021-07-18 14:40 | disposition home or self-care (01) ==
LOC: EUO 12:39
DX: M05.79 Rheumatoid arthritis with rheumatoid factor of multiple sites without organ or systems involvement (principal)
CPT/HCPCS: J0129

== ENCOUNTER 2021-08-15 12:35 | Outpatient (CLI) | payer MEDICARE, BC ==
[~2021-08-15] VITALS: Ht 162.6 cm; Wt 74.9 kg
[2021-08-15 13:22] VITALS: BP 154/65; PULSE 55; TEMP 98.3
[2021-08-15] MEDS ORDERED: MELATONIN5 M1 SL (13:40)
--- NOTE | 2021-08-15 15:18 | NUR ---
Pt tolerated infusion without complication. New appt made for next visit. pt ambulates out of EU.
== END 2021-08-18 18:20 ==
LOC: EUO 12:35
DX: M05.79 Rheumatoid arthritis with rheumatoid factor of multiple sites without organ or systems involvement (principal)
CPT/HCPCS: J0129

== ENCOUNTER 2021-09-12 12:45 | Outpatient (CLI) | payer MEDICARE, BC ==
[~2021-09-12 12:45] MED LIST changes: +MELATONIN5 M1 SL
[2021-09-12 13:15] LABS: BASO % 0.4 % (0.0-2.0); EOS # 0.1 K/mm3 (0.0-0.7); EOS % 1.5 % (0.0-4.0); GRAN # 2.6 K/mm3 (1.4-6.5); GRAN % 47.4 % (42.2-75.2); HEMATOCRIT 39.8 % (37.0-47.0); LYMPH # 2.1 K/mm3 (1.2-3.4); LYMPH % 38.6 % (20.0-51.0); MEAN CELL VOLUME 88 fl (80.0-100.0); MEAN CORPUSCULAR HEMOGLOBIN 29 pg (27-31); MEAN CORPUSCULAR HGB CONC 33 g/dl (33.0-37.0); MEAN PLATELET VOLUME 10.9 fl (7.4-10.4); MONO # 0.6 K/mm3 (0.1-0.6); MONO % 11.9 % (1.7-9.3); PLATELET COUNT 148 K/mm3 (130-400); RED BLOOD COUNT 4.55 M/mm3 (4.10-5.30); REDCELL DISTRIBUTION WIDTH-CV 15.1 % (11.5-14.5)
[2021-09-12 13:33] LABS: ALBUMIN 3.7 gm/dL (3.4-4.8); BILIRUBIN,TOTAL 0.5 mg/dL (0.2-1.2); CALCIUM 9.3 mg/dL (8.4-10.2); CREATININE, serum 0.79 mg/dL (0.57-1.11); POTASSIUM 3.9 mmol/L (3.5-4.5); TOTAL PROTEIN 7.1 gm/dL (6.2-8.1)
[2021-09-12 13:44] VITALS: BP 129/67; PULSE 59; TEMP 98.4
== END 2021-09-12 15:31 ==
LOC: EUO 12:45
PROVIDERS: Internal Medicine
DX: M05.79 Rheumatoid arthritis with rheumatoid factor of multiple sites without organ or systems involvement (principal)
CPT/HCPCS: J0129

== ENCOUNTER 2021-10-26 12:41 | Outpatient (CLI) | payer MEDICARE, BC ==
[~2021-10-26] VITALS: Ht 162.6 cm; Wt 72.3 kg
[2021-10-26 13:00] VITALS: BP 112/70; PULSE 72; TEMP 98.8
== END 2021-10-26 16:25 ==
LOC: EUO 12:41
DX: M05.79 Rheumatoid arthritis with rheumatoid factor of multiple sites without organ or systems involvement (principal)
CPT/HCPCS: J0129

== ENCOUNTER 2021-11-23 12:46 | Outpatient (CLI) | payer MEDICARE, BC ==
[~2021-11-23] VITALS: Ht 162.6 cm; Wt 72.6 kg
[2021-11-23] MEDS ORDERED: CLARITIN D TAB1 TAB PO (13:06)
[2021-11-23 14:33] VITALS: BP 107/77; PULSE 70; TEMP 98.2
== END 2021-11-23 14:43 ==
LOC: EUO 12:46
DX: M05.79 Rheumatoid arthritis with rheumatoid factor of multiple sites without organ or systems involvement (principal)
CPT/HCPCS: J0129

== ENCOUNTER 2022-01-19 13:02 | Outpatient (CLI) | payer MEDICARE, BC ==
[~2022-01-19] VITALS: Ht 162.6 cm; Wt 73.0 kg
[~2022-01-19 13:02] MED LIST changes: +CLARITIN D TAB1 TAB PO
[2022-01-19 13:35] LABS: BASO % 0.3 % (0.0-2.0); EOS # 0.2 K/mm3 (0.0-0.7); GRAN # 3.9 K/mm3 (1.4-6.5); GRAN % 50.1 % (42.2-75.2); HEMATOCRIT 39.3 % (37.0-47.0); HEMOGLOBIN 13.1 g/dl (12.5-16.0); LYMPH % 37.7 % (20.0-51.0); MEAN CELL VOLUME 91 fl (80.0-100.0); MEAN CORPUSCULAR HEMOGLOBIN 30 pg (27-31); MEAN CORPUSCULAR HGB CONC 33 g/dl (33.0-37.0); MONO # 0.8 K/mm3 (0.1-0.6); MONO % 9.8 % (1.7-9.3); PLATELET COUNT 162 K/mm3 (130-400); RED BLOOD COUNT 4.32 M/mm3 (4.10-5.30); REDCELL DISTRIBUTION WIDTH-CV 14.9 % (11.5-14.5)
[2022-01-19 13:46] VITALS: BP 133/78; PULSE 57; TEMP 98
[2022-01-19 13:50] LABS: ALBUMIN 3.8 gm/dL (3.4-4.8); BILIRUBIN,TOTAL 0.7 mg/dL (0.2-1.2); CALCIUM 9.1 mg/dL (8.4-10.2); CREATININE, serum 0.78 mg/dL (0.57-1.11); POTASSIUM 4.1 mmol/L (3.5-4.5); TOTAL PROTEIN 6.6 gm/dL (6.2-8.1)
== END 2022-01-19 15:12 | disposition home or self-care (01) ==
LOC: EUO 13:02
PROVIDERS: Internal Medicine
DX: M05.79 Rheumatoid arthritis with rheumatoid factor of multiple sites without organ or systems involvement (principal)
CPT/HCPCS: J0129

== ENCOUNTER 2022-03-16 13:16 | Outpatient (CLI) | payer MEDICARE, BC ==
[~2022-03-16] VITALS: Ht 162.6 cm; Wt 74.5 kg
[2022-03-16 14:11] VITALS: BP 170/82; PULSE 72; TEMP 97.6
[2022-06-08] MEDS ORDERED: PROBIOTIC BLEN1 EACH PO (13:21)
[2022-07-06] MEDS ORDERED: LASIX 20MG TABL20 MG PO (14:51)
[2022-08-03] MEDS ORDERED: PROTONIX 40MG T40 MG PO (14:04)
[2022-08-31] MEDS ORDERED: MUCINEX DM 30 M1 TE1 PO (13:34)
[2022-08-31] MEDS ORDERED: FLONASEALLERGY NS (13:36)
[2022-08-31] MEDS ORDERED: SENNA-S 50 MG-81 TAB PO (13:36)
[2022-08-31] MEDS ORDERED: THE MEDICINE SH1 POW PO (13:36)
[2022-08-31] MEDS ORDERED: MASON NATURAL1200 MG PO (13:38)
== END 2022-03-16 15:15 | disposition home or self-care (01) ==
LOC: EUO 13:16
DX: M05.79 Rheumatoid arthritis with rheumatoid factor of multiple sites without organ or systems involvement (principal)
CPT/HCPCS: J0129

== ENCOUNTER 2022-04-13 13:27 | Outpatient (CLI) | payer MEDICARE, BC ==
[~2022-04-13] VITALS: Ht 162.6 cm; Wt 74.1 kg
[2022-04-13] MEDS ORDERED: GENTEAL TEARS 015 M1 OP (13:59)
[2022-04-13 15:26] VITALS: BP 165/78; PULSE 57; TEMP 98.3
--- NOTE | 2022-04-13 15:30 | NUR ---
IV site wrapped with coban. Pt exits dept with steady gait with belongings.
== END 2022-04-13 15:30 | disposition home or self-care (01) ==
LOC: EUO 13:27
DX: M05.79 Rheumatoid arthritis with rheumatoid factor of multiple sites without organ or systems involvement (principal)
CPT/HCPCS: J0129

== ENCOUNTER 2022-05-11 13:12 | Outpatient (CLI) | payer MEDICARE, BC ==
[~2022-05-11 13:12] MED LIST changes: +GENTEAL TEARS 015 M1 OP
[2022-05-11 14:03] VITALS: BP 147/81; PULSE 54; TEMP 97.8
[2022-05-11 14:03] LABS: BASO % 0.4 % (0.0-2.0); EOS # 0.2 K/mm3 (0.0-0.7); EOS % 2.2 % (0.0-4.0); GRAN # 3.9 K/mm3 (1.4-6.5); HEMATOCRIT 40.9 % (37.0-47.0); HEMOGLOBIN 13.8 g/dl (12.5-16.0); LYMPH # 2.6 K/mm3 (1.2-3.4); LYMPH % 35.1 % (20.0-51.0); MEAN CELL VOLUME 91 fl (80.0-100.0); MEAN CORPUSCULAR HEMOGLOBIN 31 pg (27-31); MEAN CORPUSCULAR HGB CONC 34 g/dl (33.0-37.0); MEAN PLATELET VOLUME 11.4 fl (7.4-10.4); MONO # 0.6 K/mm3 (0.1-0.6); MONO % 8.2 % (1.7-9.3); PLATELET COUNT 147 K/mm3 (130-400); RED BLOOD COUNT 4.52 M/mm3 (4.10-5.30); REDCELL DISTRIBUTION WIDTH-CV 13.7 % (11.5-14.5)
[2022-05-11 14:23] LABS: ALBUMIN 3.8 gm/dL (3.4-4.8); CALCIUM 9.3 mg/dL (8.4-10.2); CREATININE, serum 0.81 mg/dL (0.57-1.11); POTASSIUM 3.9 mmol/L (3.5-4.5); TOTAL PROTEIN 6.6 gm/dL (6.2-8.1)
--- NOTE | 2022-05-11 15:10 | NUR ---
Pt exits dept with steady gait. She tolerated infusion without issue
== END 2022-05-11 15:10 | disposition home or self-care (01) ==
LOC: EUO 13:12
PROVIDERS: Internal Medicine
DX: M05.79 Rheumatoid arthritis with rheumatoid factor of multiple sites without organ or systems involvement (principal)
CPT/HCPCS: J0129

== ENCOUNTER 2023-03-08 13:09 | Outpatient (CLI) | payer MEDICARE, BC ==
[~2023-03-08] VITALS: Ht 162.6 cm; Wt 71.6 kg
[~2023-03-08 13:09] MED LIST changes: +FLONASEALLERGY NS; +MASON NATURAL1200 MG PO; +MUCINEX DM 30 M1 TE1 PO; +PROBIOTIC BLEN1 EACH PO; +PROTONIX 40MG T40 MG PO; +SENNA-S 50 MG-81 TAB PO; +THE MEDICINE SH1 POW PO
[2023-03-08 13:45] VITALS: BP 114/76; PULSE 57; TEMP 98.1
== END 2023-03-08 14:59 ==
LOC: EUO 13:09
DX: M05.79 Rheumatoid arthritis with rheumatoid factor of multiple sites without organ or systems involvement (principal)
CPT/HCPCS: J0129-JA

== ENCOUNTER 2023-04-05 13:05 | Outpatient (CLI) | payer MEDICARE, BC ==
[~2023-04-05] VITALS: Ht 162.6 cm; Wt 72.4 kg
[2023-04-05 13:41] VITALS: BP 144/77; PULSE 54; TEMP 97.9
[2023-04-05] MEDS ORDERED: NS IV SCH (14:00)
[2023-04-05] MEDS ORDERED: ABATACEPT IV SCH (14:00)
[2023-04-05] MEDS ORDERED: SYSTANE BALANCE10 M1 OP (14:18)
--- NOTE | 2023-04-05 15:06 | NUR ---
Pt tolerated infusion without issue. IV DC'd, site wrapped with coban. She exits dept with steady gait. Free of complaints at time of discharge.
[2023-04-05] MEDS ORDERED: COLACE 100100 MG/CAP PO (16:17)
[2023-04-05] MEDS ORDERED: VITAMIN B12 781 TAB PO (16:18)
[2023-04-05] MEDS ORDERED: SENOKOT S 50 MG1 TAB PO (16:20)
[2023-04-05] MEDS ORDERED: MUCINEX DM 30 M1 TE1 (16:20)
== END 2023-04-05 15:06 | disposition home or self-care (01) ==
LOC: EUO 13:05
DX: M05.79 Rheumatoid arthritis with rheumatoid factor of multiple sites without organ or systems involvement (principal)
CPT/HCPCS: J0129-JA

== ENCOUNTER 2023-12-12 13:16 | Outpatient (CLI) | payer MEDICARE, BC ==
[~2023-12-12] VITALS: Ht 162.6 cm; Wt 68.1 kg
[~2023-12-12 13:16] MED LIST changes: -EPA FISH OIL1000 MG PO; +GENTEAL MILD 1515 M1 OP; +MUCINEX DM 30 M1 TE1; +PROBIOTIC DIGE1 EACH PO; +SYSTANE BALANCE10 M1 OP; +VITAMIN B12 781 TAB PO
[2023-12-12 13:40] VITALS: BP 126/78; PULSE 92; TEMP 98.5
[2023-12-12] MEDS ORDERED: NS IV SCH (14:00)
[2023-12-12] MEDS ORDERED: ABATACEPT IV SCH (14:00)
== END 2023-12-12 15:25 | disposition home or self-care (01) ==
LOC: EUO 13:16
DX: M05.79 Rheumatoid arthritis with rheumatoid factor of multiple sites without organ or systems involvement (principal)
CPT/HCPCS: J0129-JA

== ENCOUNTER 2024-01-09 13:11 | Outpatient (CLI) | payer MEDICARE, BC ==
[2024-01-09] MEDS ORDERED: NS IV SCH (13:30)
[2024-01-09] MEDS ORDERED: ABATACEPT IV SCH (13:30)
[2024-01-09 13:44] LABS: BASO % 0.3 % (0.0-2.0); EOS # 0.1 K/mm3 (0.0-0.7); EOS % 1.6 % (0.0-4.0); GRAN % 52.9 % (42.2-75.2); HEMATOCRIT 39.8 % (37.0-47.0); HEMOGLOBIN 13.9 g/dl (12.5-16.0); LYMPH # 2.8 K/mm3 (1.2-3.4); LYMPH % 36.8 % (20.0-51.0); MEAN CELL VOLUME 91 fl (80.0-100.0); MEAN CORPUSCULAR HEMOGLOBIN 32 pg (27-31); MEAN CORPUSCULAR HGB CONC 35 g/dl (33.0-37.0); MEAN PLATELET VOLUME 11.1 fl (7.4-10.4); MONO # 0.6 K/mm3 (0.1-0.6); MONO % 8.1 % (1.7-9.3); PLATELET COUNT 143 K/mm3 (130-400); RED BLOOD COUNT 4.36 M/mm3 (4.10-5.30); REDCELL DISTRIBUTION WIDTH-CV 13.6 % (11.5-14.5)
[2024-01-09 13:59] VITALS: BP 116/68; PULSE 59; TEMP 98.7
[2024-01-09 14:03] LABS: ALBUMIN 3.7 g/dL (3.4-4.8); BILIRUBIN,TOTAL 0.8 mg/dL (0.2-1.2); CALCIUM 9.7 mg/dL (8.4-10.2); CREATININE, serum 0.82 mg/dL (0.57-1.11); POTASSIUM 3.9 mEq/L (3.5-4.5); TOTAL PROTEIN 6.7 g/dl (6.2-8.1)
--- NOTE | 2024-01-09 15:16 | NUR ---
Pt tolerated infusion without issue. IV DC'd, wrapped with coban. Pt exits dept with steady gait. Free of complaints at discharge.
== END 2024-01-09 15:16 | disposition home or self-care (01) ==
LOC: EUO 13:11
PROVIDERS: Internal Medicine
DX: M05.79 Rheumatoid arthritis with rheumatoid factor of multiple sites without organ or systems involvement (principal)
CPT/HCPCS: J0129-JA